=== PATIENT | male | born 2000 | race Caucasian/White ===

== ENCOUNTER 2021-07-13 18:21 | Emergency (ER) | payer BC ==
[~2021-07-13] VITALS: Ht 172.7 cm; Wt 61.2 kg
--- NOTE | 2021-07-13 18:46 | NUR ---
PT IS IN ROOM #2A. DR NELSON EVALUATED THE PT.
--- NOTE | 2021-07-13 19:05 | NUR ---
Xray at bedside.
[2021-07-13 19:16] LABS: HEMATOCRIT 38.2 % (36.7-47.1); MEAN CORPUSCULAR HEMOGLOBIN 30.7 uug (23.8-33.4); MEAN CORPUSCULAR VOLUME 87.7 fL (73.0-96.2); PLATELET COUNT (AUTO) 303 K/uL (152-348)
[2021-07-13 19:23] LABS: CARBON DIOXIDE 24 mmol/L (21-32); CHLORIDE 108 mmol/L (98-107); CREATININE 0.8 mg/dL (0.6-1.3); GLUCOSE 90 mg/dL (74-106); UREA NITROGEN, BLOOD 14 mg/dL (7-18)
[2021-07-13 19:28] LABS: *BILIRUBIN,URIN NEGATIVE (NEGATIVE); *CLARITY,URINE CLEAR (CLEAR); *COLOR,URINE YELLOW (YELLOW); *KETONES,URINE TRACE (NEGATIVE); *UROBILINOGEN,URINE 0.2 E.U./dl (NORMAL); LEUKOCYTE ESTERASE ,URINE NEGATIVE (NEGATIVE); NITRITE, URINE NEGATIVE (NEGATIVE); PH,URINE 6.5 (5.0-8.0); UGLUCOSE NEGATIVE (NEGATIVE)
[2021-07-13 19:29] LABS: *BLOOD, URINE TRACE (NEGATIVE)
[2021-07-13 19:30] LABS: ALANINE AMINOTRANSFERASE 40 U/L (16-63); ALKALINE PHOSPHATASE 77 U/L (50-136); ASPARTATE AMINOTRANSFERASE 18 U/L (15-37); BILIRUBIN,DIRECT 0.2 mg/dL (0.0-0.2); BILIRUBIN,TOTAL 0.5 mg/dL (0.2-1.0); TOTAL PROTEIN, SERUM 6.9 g/dL (6.4-8.2)
[2021-07-13 19:35] LABS: BACTERIA,URINE NONE SEEN /HPF (NONE SEEN); RBC,URINE 0-3 /HPF (0-3); SQUAMOUS EPITHELIAL CELL,UR FEW /HPF (NONE SEEN); WBC,URINE NONE SEEN /HPF (0-3)
[2021-07-13 19:37] LABS: THYROID STIMULATING HORMONE 0.637 mIU/mL (0.358-3.740)
[2021-07-13 19:43] LABS: ACETAMINOPHEN < 2.0 ug/mL (10-30)
[2021-07-13 19:45] LABS: *AMPHETAMINE, URINE POSITIVE (NEGATIVE); *CANNABINOID, URINE NEGATIVE (NEGATIVE); *COCCAINE, URINE NEGATIVE (NEGATIVE); *OPIATE, URINE NEGATIVE (NEGATIVE); *PHENCYCLIDINE SCREEN,URINE NEGATIVE (NEGATIVE)
[2021-07-13 19:57] LABS: ETHANOL < 3 MG/DL (0-0)
--- NOTE | 2021-07-13 20:50 | NUR ---
Called Joi Jensen [facility] for patient psych eval.
[2021-07-13] MEDS ORDERED: OLANZAPINE 10 MG VIAL IM ONE ×2 (21:45→21:49)
--- NOTE | 2021-07-13 22:21 | NUR ---
Mother of pt "Tati"
--- NOTE | 2021-07-14 08:43 | NUR ---
PT WAS D/C'd TO HOME. D/C INSTRUCTIONS GIVEN TO THE PT BY DR TAVERAS. GAIT IS STABLE. NO S/S OF DISTRESS. NO SOB, NO N/V, PT DENIES PAIN.
[2021-07-14 08:45] VITALS: BP 131/75
== END 2021-07-14 08:46 | disposition home or self-care (01) ==
LOC: ER 18:23
DX: F12.929 Cannabis use, unspecified with intoxication, unspecified (principal)
CPT/HCPCS: 36415; 71045; 84443; 85025; 93005; A4663; G0480; J2358